=== PATIENT | female | born 2000 | race Two or more races ===

== ENCOUNTER 2024-07-21 09:13 | Emergency (ER) | payer OTHER ==
[2024-07-21] MEDS ORDERED: Lidocaine 4% Patch ONE (11:13)
[2024-07-21] MEDS ORDERED: Acetaminophen 500 MG TAB ONE (11:13)
== END 2024-07-21 11:33 | disposition home or self-care (01) ==
LOC: CSHERS 09:13
DX: S20.212A Contusion of left front wall of thorax, initial encounter (principal); W01.0XXA Fall on same level from slipping, tripping and stumbling without subsequent striking against object, initial encounter
CPT/HCPCS: 99283